=== PATIENT | female | born 1975 | race Caucasian/White ===

== ENCOUNTER → 2016-04-05 | Outpatient (CLI) | payer OTHER ==
[~2016-04-05] MED LIST: AMOXICILLIN500 M1 PO; ANTIVERT PO; AZITHROMYCIN250 MG PO; BACTRIM DS TABL1 TA1 PO; CLINDAMYCIN HC300 MG PO; FIORICET 50-321 EACH PO; FLEXERIL10 M1 PO; FLONASE 0.05% N16 G1; KEFLEX500 MG PO; LIPITOR PO; LORTAB 5/500 TA1 TA1 PO; MEDROL4 MG/DOSE- PO; ORUDIS75 M1 PO; PEN-VEE K PO; PEPCID PO; PHENERGAN25 MG PO; ROBITUSSIN-DM118 ML PO; TRAMADOL HCL50 M1 PO; VIBRAMYCIN100 M1 DOB; VICODIN 5/500 T1 TAB PO; VICODIN PO
--- NOTE | ~2016-04-05 | US24 ---
[facility] A Service [facility] RADIOLOGY TEXT RESULTS PATIENT: [facility]SIEL [id number] 75 UN[facility] #: [id number] AGE: [address]: Linsey Monique MD SEX: F ORDER DR: [id number] [facility] [address] [place], [place] [address] [id number] O MR#: [id number] Acc #: [id number] NAME: OSIEL LUQUE : 1975 SEX: F STUDY DATE/TIME: 04/05/2016 15:10 UNIT: [facility] ROOM: STUDY DESCRIPTION: US Breast Unilateral Attending Physician: Linsey Monique M.D. Referring Physician: Linsey Monique M.D. Ordering Physician: Linsey Monique M.D. Primary Care Physician: Linsey Monique M.D. MEDICAL IMAGING REPORT This report is preliminary unless electronic signature is present EXAM Right breast ultrasound INDICATIONS Right breast masses. PROCEDURE Callahan-scale and Doppler imaging right breast at the 9 and 10 o'clock positions. Comparison concurrently performed diagnostic mammogram IMPRESSION Refer to separately dictated diagnostic mammogram for complete workup findings and recommendations. Patients over the age of 40 are entered into a reminder system with target due date for the next mammogram. A result letter will also be sent to the patient. BIRADS: 4B. Suspicious abnormality; biopsy should be considered; intermediate level of suspicion for malignancy. . Dictated by... Alessandro San M.D. THIS IS AN ELECTRONICALLY VERIFIED REPORT Alessandro San M.D. at 04/06/2016 7:08 AM EED/glenn TD: 04/05/2016 19:46 JOB #: [id number] [facility] A Service [facility] RADIOLOGY TEXT RESULTS PATIENT: OSIEL LUQUE [id number] 75 UNIT #: [id number] AGE: [address]: Linsey Monique MD SEX: F ORDER DR: MEDICAL IMAGING REPORT COPY
--- NOTE | ~2016-04-05 | MY6 ---
[facility] A Service of [facility] RADIOLOGY TEXT RESULTS PATIENT: OSIEL LUQUE LOCATION: [facility] : 75 UNIT #: [id number] AGE: [address]: Linsey Monique MD SEX: F ORDER DR: [id number] [facility] [address] [place], [place] [address] [id number] O MR#: [id number] Acc #: [id number] NAME: OSIEL LUQUE : 1975 SEX: F STUDY DATE/TIME: 04/05/2016 14:49 UNIT: [facility] ROOM: STUDY DESCRIPTION: MY Mammogram Dx Dig Rene Attending Physician: Linsey Monique M.D. Referring Physician: Linsey Monique M.D. Ordering Physician: Linsey Monique M.D. Primary Care Physician: Linsey Monique M.D. MEDICAL IMAGING REPORT This report is preliminary unless electronic signature is present EXAM Bilateral digital diagnostic mammogram. HISTORY Right breast pain for the past 4 months. Patient also had previously demonstrated right breast nodules, for which ultrasound was recommended, but not performed. TECHNIQUE Bilateral CC and MLO views. True lateral view of the right breast, spot compression views, right breast, CC and MLO projections. Images obtained on a digital mammography unit. An FDA-approved CAD device was utilized. COMPARISON 04/07/2015 FINDINGS Scattered fibroglandular densities in both breasts. There is a 1.4-cm and a 5-6 cm nodule in the upper outer quadrant of the right breast. These are not significantly changed from the prior. There is no new dominant mass or suspicious calcification. A concurrently performed right breast ultrasound demonstrates a 10-mm hypoechoic mass right breast at the 9 o'clock position and a 6-mm hypoechoic mass in the right breast at the 10 o'clock position. IMPRESSION 2 hypoechoic masses in the upper outer quadrant of the right breast. They are not significantly changed from 04/07/2015. Recommend ultrasound-guided core biopsy. Patients over the age of 40 are entered into a reminder system with target due date for the next mammogram. A result letter will also be sent to the [facility] A Service of [facility] RADIOLOGY TEXT RESULTS PATIENT: OSIEL LUQUE LOCATION: [facility] : 75 UNIT #: [id number] AGE: [address]: Linsey Monique MD SEX: F ORDER DR: patient. BIRADS: 4B. Suspicious abnormality; biopsy should be considered; intermediate level of suspicion for malignancy. Dictated by... Alessandro San M.D. THIS IS AN ELECTRONICALLY VERIFIED REPORT Alessandro San M.D. at 04/06/2016 7:08 AM Lisa TD: 04/05/2016 19:15 JOB #: [id number] MEDICAL IMAGING REPORT COPY
== END | disposition home or self-care (01) ==
LOC: CMAM 14:26
DX: N63 Unspecified lump in breast (principal)
CPT/HCPCS: 76641; G0204

== ENCOUNTER → 2016-04-11 | Outpatient (CLI) | payer OTHER ==
--- NOTE | ~2016-04-11 | US200 ---
[facility] A Service of [facility] & [facility] RADIOLOGY TEXT RESULTS PATIENT: OSIEL LUQUE LOCATION: [facility] : 75 UNIT #: [id number] AGE: [address]: Bess Monahan APRN SEX: F ORDER DR: [id number] [facility] [address] [place], [place] [address] [id number] O MR#: [id number] Acc #: [id number] NAME: OSIEL LUQUE. : 1975 SEX: F STUDY DATE/TIME: 04/11/2016 13:25 UNIT: [facility] ROOM: STUDY DESCRIPTION: US Breast Guided Bx 1st Lesion Attending Physician: Bess Monahan Aprn Ordering Physician: Bess Monahan Aprn Primary Care Physician: Linsey Monique M.D. MEDICAL IMAGING REPORT This report is preliminary unless electronic signature is present REVISED REPORT See addendum EXAM Right breast ultrasound-guided biopsy INDICATION 2 masses in the right breast seen on recent mammogram. The prior study showed a 14 mm oval mass at 9 o'clock 5 cm from the nipple and a probable pathologic lymph node at 10 o'clock, 9 cm from the nipple. PROCEDURE After informed consent, sterile preparation, and local anesthesia, I obtained 3 15-guage needle samples from the mass and placed a u-shaped clip into the mass. Then I obtained two 14-gauge core samples from the smaller lymph node and placed a bowtie-shaped clip into the lymph node. Post procedure mammogram showed the clip is in good position. The samples were placed in separate vials of formalin and sent to the lab. IMPRESSION Successful 14-gauge core sampling of mass and pathologic lymph node in right breast. Pathology report is pending. Dictated by... Urban Shipman M.D. THIS IS AN ELECTRONICALLY VERIFIED REPORT Urban Shipman M.D. at 04/12/2016 7:13 AM CHRISTOPHER/stormy TD: 04/12/2016 06:28 [facility] A Service of [facility] & [facility] RADIOLOGY TEXT RESULTS PATIENT: OSIEL LUQUE LOCATION: [facility] : 75 UNIT #: [id number] AGE: [address]: Bess Monahan APRN SEX: F ORDER DR: NICOLE #: [id number] ADDENDUM Pathology report has been placed on line for the biopsy done 04/11/2016. The needle core biopsy of the mass shows a fibroglandular lesion with focal and mild ductal hyperplasia of the usual type. The analysis of the lymph node tissue showed no evidence of malignancy and showed findings consistent with reactive lymph node. 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 Dictated by... Urban Shipman M.D. THIS IS AN ELECTRONICALLY VERIFIED REPORT Urban Shipman M.D. at 05/08/2016 5:41 PM CHRISTOPHER/dianne TD: 05/05/2016 19:33 JOB #: [id number] CC: Kandice/chio Please Delete MEDICAL IMAGING REPORT Page 1 of 1 COPY
== END | disposition home or self-care (01) ==
LOC: CWCC 13:03
DX: N60.91 Unspecified benign mammary dysplasia of right breast (principal); R59.0 Localized enlarged lymph nodes
CPT/HCPCS: 88305; 88313; 88323; 88341; 88342; G0204

== ENCOUNTER 2016-08-17 17:09 | Emergency (ER) | payer OTHER | END 2016-08-17 20:00 | disposition home or self-care (01) | LOC: CFTX 17:09 → CED 17:09 → CFTX 19:40 | DX: Z53.21 Procedure and treatment not carried out due to patient leaving prior to being seen by health care provider (principal) ==

== ENCOUNTER 2016-09-04 13:20 | Emergency (ER) | payer OTHER ==
[~2016-09-04] VITALS: Ht 160 cm; Wt 81.6 kg
--- NOTE | ~2016-09-04 | CR172 ---
[facility] A Service of [facility] & [facility] RADIOLOGY TEXT RESULTS PATIENT: OSIEL LUQUE LOCATION: [facility] : 75 UNIT #: [id number] AGE: [address]: Charis Cook APRN SEX: F ORDER DR: [id number] [facility] [address] [address] [id number] E MR#: [id number] Acc #: [id number] NAME: OSIEL LUQUE. : 1975 SEX: F STUDY DATE/TIME: 09/04/2016 14:41 UNIT: [facility] ROOM: STUDY DESCRIPTION: CR Knee 3 Views Lt Attending Physician: Charis Cook A.P.R.N. Ordering Physician: Nathanael Amaya M.D. [facility] REPORT This report is preliminary unless electronic signature is present EXAM Left knee 09/04/2016 INDICATIONS 41-year-old female with the history of pain and swelling today after slipping on water at work, hit the kneecap against the floor. TECHNIQUE Two views of the left knee compared with 12/08/2015. FINDINGS AP and lateral projection of the knee shows smooth articular anatomy without indication of fracture or dislocation at the major weight-bearing surface of the knee. There is no indication of radiopaque foreign body about the knee surface or joint effusion. IMPRESSION Negative three-view left knee. Dictated by... Kalyan Vargas M.D. THIS IS AN ELECTRONICALLY VERIFIED REPORT Kalyan Vragas M.D. at 09/05/2016 11:41 AM ELIZABETH/carlos TD: 09/04/2016 23:22 JOB #: [id number] MEDICAL IMAGING REPORT Page 1 of 1 COPY
== END 2016-09-04 15:25 | disposition home or self-care (01) ==
LOC: CFTX 13:20 → CED 13:20 → CFTX 14:40
DX: S80.02XA Contusion of left knee, initial encounter (principal); S80.01XA Contusion of right knee, initial encounter; W20.8XXA Other cause of strike by thrown, projected or falling object, initial encounter
CPT/HCPCS: 73562; 99283